=== PATIENT | female | born 1960 | race Caucasian/White ===

== ENCOUNTER 2018-06-30 09:13 | Inpatient (IN) | payer BC ==
[~2018-06-30] VITALS: Ht 162.6 cm; Wt 101.2 kg
[2018-06-30] VITALS (8 sets, daily range): BP systolic 125–146; BP diastolic 78–86
[2018-06-30] MEDS ORDERED: IBUP-1223 PO (09:40)
[2018-06-30] MEDS ORDERED: AMLO10TA6 PO (09:40)
[2018-06-30] MEDS ORDERED: HYDR-3241 PO (09:40)
[2018-06-30] MEDS ORDERED: ALPR1TAB5 PO (09:40)
[2018-06-30] MEDS ORDERED: METF500T17 PO (09:40)
[2018-06-30] MEDS ORDERED: LEVO25TA4 PO (09:40)
[2018-06-30] MEDS ORDERED: BENA40TA3 PO (09:40)
[2018-06-30 09:59] LABS: BASOPHILS # (AUTO) 0.02 x10^3/uL (0-0.1); BASOPHILS % (AUTO) 0 % (0-1); EOSINOPHILS # (AUTO) 0.12 x10^3/uL (0-0.4); EOSINOPHILS % (AUTO) 2 % (1-7); LYMPHOCYTES # (AUTO) 2.09 x10^3/uL (1-3.4); LYMPHOCYTES % (AUTO) 27 % (22-44); MD NO; MEAN CORPUSCULAR HEMOGLOBIN 31.4 pg (27.0-34.8); MEAN CORPUSCULAR HGB CONC 34.2 g/dL (32.4-35.8); MEAN CORPUSCULAR VOLUME 91.7 fL (80-100); MEAN PLATELET VOLUME 10.5 fL (7.4-10.4); MONOCYTES # (AUTO) 0.34 x10^3/uL (0.2-0.8); MONOCYTES % (AUTO) 4 % (2-9); NEUTROPHILS # (AUTO) 5.19 x10^3/uL (1.8-6.8); NEUTROPHILS % (AUTO) 67 % (42-75); PLATELET COUNT 179 x10^3/uL (130-400); RED BLOOD COUNT 4.85 x10^6/uL (3.82-5.3); RED CELL DISTRIBUTION WIDTH 13.3 % (9.6-15.2)
[2018-06-30] MEDS ORDERED: SODIUM CHLORIDE 0.9% 1,000ML IVBOLUS ONE (10:00)
[2018-06-30] MEDS ORDERED: SODIUM CHLORIDE FLUSH 10ML SYR IVF ONE (10:00)
[2018-06-30 10:11] LABS: ALANINE AMINOTRANSFERASE 34 U/L (12-78); ALBUMIN 3.7 g/dL (3.4-5.0); ANION GAP 9 mmol/L (5-15); CALCIUM 8.5 mg/dL (8.5-10.1); CHLORIDE 107 mmol/L (98-107); CREATININE 0.74 mg/dL (0.55-1.02)
[2018-06-30 10:15] LABS: ALKALINE PHOSPHATASE 51 U/L (45-117); BILIRUBIN,TOTAL 0.6 mg/dL (0.2-1.0); TOTAL PROTEIN 7.2 g/dL (6.4-8.2); TROPONIN I < 0.015 ng/mL (0.000-0.045)
[2018-06-30 10:17] LABS: MICROSCOPIC AUTO
[2018-06-30 10:18] LABS: CULTURE INDICATED? YES
[2018-06-30] MEDS ORDERED: ASPIRIN 81 MG TABLET CHEW PO ONE (11:00)
[2018-06-30] MEDS ORDERED: ASPIRIN 81 MG TABLET CHEW ONE (11:00)
[2018-06-30] MEDS ORDERED: ONDANSETRON ODT 4 MG PO PRN (11:30)
[2018-06-30] MEDS ORDERED: ACETAMINOPHEN 325 MG TABLET PO PRN (11:30)
[2018-06-30] MEDS ORDERED: IBUPROFEN 600 MG TABLET PO PRN (11:30)
[2018-06-30] MEDS ORDERED: ONDANSETRON 2MG/ML, 2ML IVPush PRN (11:30)
[2018-06-30] MEDS: ENOXAPARIN 40 MG/0.4 ML SQ SCH (11:30)
[2018-06-30 12:37] LABS: HEMOGLOBIN A1C 7.5 % (4.2-6.3)
[2018-06-30] MEDS: MECLIZINE CHEWABLE 25 MG TAB PO PRN (13:28)
[2018-06-30] MEDS: SODIUM CHLORIDE 0.9% 1,000 ML IV SCH ×2 (13:28→22:40)
[2018-06-30 15:39] LABS: TROPONIN I < 0.015 ng/mL (0.000-0.045)
[2018-06-30] MEDS: INSULIN LISPRO 100 UNITS/ML, PEN SQ-INSULIN SCH ×2 (16:00→20:47)
[2018-06-30 20:27] LABS: TROPONIN I < 0.015 ng/mL (0.000-0.045)
[2018-07-01] VITALS (9 sets, daily range): BP systolic 115–147; BP diastolic 72–85
[2018-07-01 05:22] LABS: BASOPHILS # (AUTO) 0.03 x10^3/uL (0-0.1); BASOPHILS % (AUTO) 0 % (0-1); EOSINOPHILS % (AUTO) 3 % (1-7); LYMPHOCYTES # (AUTO) 3.16 x10^3/uL (1-3.4); LYMPHOCYTES % (AUTO) 41 % (22-44); MD NO; MEAN CORPUSCULAR HEMOGLOBIN 30.4 pg (27.0-34.8); MEAN CORPUSCULAR VOLUME 92.1 fL (80-100); MONOCYTES # (AUTO) 0.48 x10^3/uL (0.2-0.8); MONOCYTES % (AUTO) 6 % (2-9); NEUTROPHILS # (AUTO) 3.92 x10^3/uL (1.8-6.8); NEUTROPHILS % (AUTO) 50 % (42-75); PLATELET COUNT 160 x10^3/uL (130-400); RED BLOOD COUNT 4.28 x10^6/uL (3.82-5.3); RED CELL DISTRIBUTION WIDTH 13.8 % (9.6-15.2)
[2018-07-01 05:30] LABS: ALBUMIN 2.9 g/dL (3.4-5.0); ANION GAP 7 mmol/L (5-15); CALCIUM 8.2 mg/dL (8.5-10.1); CHLORIDE 109 mmol/L (98-107)
[2018-07-01 05:39] LABS: ALANINE AMINOTRANSFERASE 25 U/L (12-78); ALKALINE PHOSPHATASE 41 U/L (45-117); BILIRUBIN,TOTAL 0.4 mg/dL (0.2-1.0); CHOL/HDL RATIO 4.2; CHOLESTEROL, TOTAL 159 mg/dL (140-239); CREATININE 0.77 mg/dL (0.55-1.02); HDL CHOL % 24 % (28-40); HDL CHOLESTEROL (DIRECT) 38 mg/dL (40-60); LDL CHOLESTEROL,CALCULATED 93 mg/dL (54-169); LDL/HDL RATIO 2.4 (0.5-3.0); TRIGLYCERIDES 138 mg/dL (50-200); VLDL CHOLESTEROL 28 mg/dL (0-25)
[2018-07-01] MEDS: SODIUM CHLORIDE 0.9% 1,000 ML IV SCH ×3 (05:50→21:35)
[2018-07-01] MEDS: INSULIN LISPRO 100 UNITS/ML, PEN SQ-INSULIN SCH ×4 (08:09→21:00)
[2018-07-01] MEDS: LEVOTHYROXINE 150 MCG TABLET PO SCH (08:09)
[2018-07-01] MEDS: BENAZEPRIL 20 MG TABLET PO SCH (08:10)
[2018-07-01] MEDS: AMLODIPINE 10 MG TAB PO SCH (08:10)
[2018-07-01] MEDS: MECLIZINE CHEWABLE 25 MG TAB PO PRN ×2 (11:33→18:10)
[2018-07-01] MEDS: ENOXAPARIN 40 MG/0.4 ML SQ SCH (11:34)
[2018-07-02] VITALS (7 sets, daily range): BP systolic 112–160; BP diastolic 65–89
[2018-07-02] MEDS: SODIUM CHLORIDE 0.9% 1,000 ML IV SCH ×3 (05:32→21:45)
[2018-07-02] MEDS: INSULIN LISPRO 100 UNITS/ML, PEN SQ-INSULIN SCH ×4 (08:24→20:46)
[2018-07-02] MEDS: MECLIZINE CHEWABLE 25 MG TAB PO PRN ×2 (08:25→16:02)
[2018-07-02] MEDS: BENAZEPRIL 20 MG TABLET PO SCH (08:26)
[2018-07-02] MEDS: AMLODIPINE 10 MG TAB PO SCH (08:27)
[2018-07-02] MEDS: LEVOTHYROXINE 150 MCG TABLET PO SCH (08:29)
[2018-07-02] MEDS: ENOXAPARIN 40 MG/0.4 ML SQ SCH (12:03)
[2018-07-02] MEDS ORDERED: GADOBUTROL 10 MMOL/10 ML PFS ONE (15:41)
[2018-07-03 02:00] VITALS: BP 134/83
[2018-07-03] MEDS: SODIUM CHLORIDE 0.9% 1,000 ML IV SCH (05:04)
[2018-07-03] MEDS: MECLIZINE CHEWABLE 25 MG TAB PO PRN ×2 (05:08→11:03)
[2018-07-03 06:57] VITALS: BP 138/78
[2018-07-03] MEDS: INSULIN LISPRO 100 UNITS/ML, PEN SQ-INSULIN SCH (08:03)
[2018-07-03] MEDS: BENAZEPRIL 20 MG TABLET PO SCH (08:22)
[2018-07-03] MEDS: AMLODIPINE 10 MG TAB PO SCH (08:23)
[2018-07-03] MEDS: LEVOTHYROXINE 150 MCG TABLET PO SCH (08:23)
[2018-07-03] MEDS ORDERED: BENAZEPRIL 10 MG TABLET ONE (08:29)
[2018-07-03] MEDS ORDERED: MECL-85 PO (10:47)
[2018-07-03] MEDS ORDERED: METF500T17 PO (10:47)
== END 2018-07-03 11:30 | disposition home or self-care (01) | DRG 74 ==
LOC: ED 09:50 → EDIP 10:32 → 5SO 11:42 → DCLOUNGE 07-03 11:14
PROVIDERS: ADMIT Internal Medicine; ATTEND Internal Medicine
DX: G90.8 Other disorders of autonomic nervous system (principal); E11.65 Type 2 diabetes mellitus with hyperglycemia; E03.9 Hypothyroidism, unspecified; F41.9 Anxiety disorder, unspecified; I10 Essential (primary) hypertension; Z83.3 Family history of diabetes mellitus; Z82.49 Family history of ischemic heart disease and other diseases of the circulatory system; Z80.9 Family history of malignant neoplasm, unspecified; Z79.84 Long term (current) use of oral hypoglycemic drugs; I65.23 Occlusion and stenosis of bilateral carotid arteries; I08.0 Rheumatic disorders of both mitral and aortic valves; Z79.899 Other long term (current) drug therapy; Z90.49 Acquired absence of other specified parts of digestive tract; Z88.6 Allergy status to analgesic agent; Z88.1 Allergy status to other antibiotic agents
CPT/HCPCS: 36415; 70450; 70553; 71045; 80053; 80061; 81001; 82962; 83036; 83735; 83880; 84100; 84443; 84484; 85025; 87086; 93005; 93306; 93880; 96360; 99285; A9585; G0378; J2405; J1815; J7030